=== PATIENT | female | born 1930 | race Caucasian/White ===

== ENCOUNTER → 2016-09-28 | Outpatient (CLI) | payer OTHER ==
[2016-09-28 09:56] LABS: Urine RBC None Seen /hpf (0 - 4)
[2016-09-28 10:07] LABS: Urine Bilirubin Negative (Negative); Urine Blood Negative /uL (Negative); Urine Color Yellow (Yellow); Urine Glucose Normal (Normal); Urine Ketone Negative (Negative); Urine Nitrite Negative (Negative); Urine Squamous Epithelial Cell FEW /hpf (<5); Urine Urobilinogen Normal (Negative)
[2016-09-28 10:21] LABS: Basophils # (auto) 0 uL; Basophils % (auto) 0.8 % (0.0-2.0); Eosinophils # (auto) 0.2 uL; Eosinophils % (auto) 4.6 % (0.0-7.0); Hematocrit 41.3 % (36.0-46.0); Hemoglobin 13.5 g/dL (12.2-16.2); Lymphocytes # (auto) 1.3 uL; Lymphocytes % (auto) 27.7 % (10.0-50.0); Mean Corpuscular Hemoglobin 31.3 pg (28.0-32.0); Mean Corpuscular Hgb Conc. 32.8 g/dL (32.0-36.0); Mean Corpuscular Volume 95.4 fL (80.0-100.0); Mean Platelet Volume 8.7 fL (7.4-10.4); Monocytes # (auto) 0.5 uL; Monocytes % (auto) 11.1 % (0.0-12.0); Neutrophils # (auto) 2.5 uL; Neutrophils % (auto) 55.8 % (37.0-80.0); Platelet Count (auto) 219 10^3/uL (140-450); Red Cell Distribution Width 15.2 % (11.6-16.0); White Blood Cell 4.6 10^3/uL (4.4-10.8)
[2016-09-28 10:24] LABS: Albumin 3.3 g/dL (3.4-5.0); BUN/Creatinine Ratio 21.7; Potassium 4.1 mmol/L (3.5-5.1); Total Protein 6.8 g/dL (6.4-8.2)
== END | disposition home or self-care (01) ==
LOC: LAB 09:23
PROVIDERS: ATTEND Internal Medicine
DX: Z00.00 Encounter for general adult medical examination without abnormal findings (principal); E55.9 Vitamin D deficiency, unspecified
CPT/HCPCS: 36415; 80053; 80061; 81001; 82306; 85025

== ENCOUNTER → 2016-10-13 | Outpatient (CLI) | payer OTHER | END | disposition home or self-care (01) | LOC: XYW 09:08 | PROVIDERS: ATTEND Internal Medicine | DX: I37.1 Nonrheumatic pulmonary valve insufficiency (principal); I10 Essential (primary) hypertension | CPT/HCPCS: 93306 ==

== ENCOUNTER → 2017-01-03 | Outpatient (CLI) | payer OTHER ==
[2017-01-03 11:38] LABS: Urine RBC None Seen /hpf (0 - 4)
[2017-01-03 11:44] LABS: Basophils # (auto) 0 uL; Basophils % (auto) 0.9 % (0.0-2.0); CONDITION Y; Eosinophils # (auto) 0.2 uL; Eosinophils % (auto) 3.5 % (0.0-7.0); Hematocrit 41.4 % (36.0-46.0); Lymphocytes # (auto) 1.3 uL; Lymphocytes % (auto) 29.4 % (10.0-50.0); Mean Corpuscular Hemoglobin 32.6 pg (28.0-32.0); Mean Platelet Volume 8.5 fL (7.4-10.4); Monocytes # (auto) 0.5 uL; Monocytes % (auto) 11.4 % (0.0-12.0); Neutrophils # (auto) 2.5 uL; Neutrophils % (auto) 54.8 % (37.0-80.0); Platelet Count (auto) 250 10^3/uL (140-450); Red Cell Distribution Width 14.1 % (11.6-16.0); White Blood Cell 4.6 10^3/uL (4.4-10.8)
[2017-01-03 11:46] LABS: Urine Bilirubin Negative (Negative); Urine Blood Negative /uL (Negative); Urine Color Yellow (Yellow); Urine Glucose Normal (Normal); Urine Ketone Negative (Negative); Urine Nitrite Negative (Negative); Urine Squamous Epithelial Cell FEW /hpf (<5); Urine Urobilinogen Normal (Negative)
[2017-01-03 12:01] LABS: Albumin 3.5 g/dL (3.4-5.0); BUN/Creatinine Ratio 16.9; Bilirubin, Total 0.8 mg/dL (0.2-1.0); Calcium 9.4 mg/dL (8.5-10.1); Potassium 3.9 mmol/L (3.5-5.1); Total Protein 7.2 g/dL (6.4-8.2)
== END | disposition home or self-care (01) ==
LOC: LAB 11:20
PROVIDERS: ATTEND Internal Medicine
DX: I10 Essential (primary) hypertension (principal); E05.90 Thyrotoxicosis, unspecified without thyrotoxic crisis or storm
CPT/HCPCS: 36415; 80053; 81001; 84443; 85025

== ENCOUNTER → 2017-10-13 | Outpatient (CLI) | payer OTHER ==
[2017-10-13 09:30] LABS: Basophils # (auto) 0 uL; Basophils % (auto) 1.3 % (0.0-2.0); Eosinophils # (auto) 0.2 uL; Eosinophils % (auto) 5.2 % (0.0-7.0); Hematocrit 43.5 % (36.0-46.0); Hemoglobin 14.5 g/dL (12.2-16.2); Lymphocytes % (auto) 28.8 % (10.0-50.0); Mean Corpuscular Hemoglobin 32.4 pg (28.0-32.0); Mean Corpuscular Hgb Conc. 33.3 g/dL (32.0-36.0); Mean Corpuscular Volume 97.4 fL (80.0-100.0); Monocytes # (auto) 0.5 uL; Monocytes % (auto) 12.6 % (0.0-12.0); Neutrophils # (auto) 1.9 uL; Neutrophils % (auto) 52.1 % (37.0-80.0); Nucleated Red Blood Cells % 0.1 %; Platelet Count (auto) 183 10^3/uL (140-450); Red Blood Cells 4.47 10^6/uL (4.0-5.20); Red Cell Distribution Width 13.9 % (11.8-14.3); White Blood Cell 3.6 10^3/uL (4.4-10.8)
[2017-10-13 09:55] LABS: Urine Bacteria NONE SEEN /hpf (None Seen); Urine Blood Negative /uL (Negative); Urine Specific Gravity 1.015 (1.001-1.035); Urine WBC 4 /hpf (0 - 5)
[2017-10-13 10:49] LABS: Albumin 3.6 g/dL (3.4-5.0); BUN/Creatinine Ratio 14.4; Bilirubin, Total 1.4 mg/dL (0.2-1.0); Calcium 9.2 mg/dL (8.5-10.1); Potassium 3.6 mmol/L (3.5-5.1); Total Protein 7.2 g/dL (6.4-8.2)
[2017-10-13 10:52] LABS: Free T4 (Free Thyroxine) 1.31 ng/dL (0.89-1.76); T3 Total 0.91 ng/mL (0.60-1.81)
== END | disposition home or self-care (01) ==
LOC: LAB 09:04
PROVIDERS: ATTEND Physician Assistant
DX: I12.9 Hypertensive chronic kidney disease with stage 1 through stage 4 chronic kidney disease, or unspecified chronic kidney disease (principal); N18.2 Chronic kidney disease, stage 2 (mild); M19.90 Unspecified osteoarthritis, unspecified site; E89.0 Postprocedural hypothyroidism; R53.83 Other fatigue
CPT/HCPCS: 36415; 80053; 80061; 81001; 84439; 84443; 84480; 85025

== ENCOUNTER → 2017-11-30 | Outpatient (CLI) | payer OTHER ==
[2017-11-30 15:28] LABS: Urine Bacteria MOD /hpf (None Seen); Urine Blood 2+ /uL (Negative); Urine Mucus FEW (None Seen); Urine Specific Gravity 1.013 (1.001-1.035); Urine WBC 264 /hpf (0 - 5); Urine WBC Clumps PRESENT /hpf (None Seen)
== END | disposition home or self-care (01) ==
LOC: LAB 14:57
PROVIDERS: ATTEND Registered Nurse General Practice
DX: N39.0 Urinary tract infection, site not specified (principal); I12.9 Hypertensive chronic kidney disease with stage 1 through stage 4 chronic kidney disease, or unspecified chronic kidney disease; N18.2 Chronic kidney disease, stage 2 (mild); F32.9 Major depressive disorder, single episode, unspecified; E03.9 Hypothyroidism, unspecified
CPT/HCPCS: 81001; 87086; 87088; 87186

== ENCOUNTER → 2018-06-26 | Outpatient (CLI) | payer OTHER | END | disposition home or self-care (01) | LOC: LAB 12:51 | PROVIDERS: ATTEND Physician Assistant | DX: E55.9 Vitamin D deficiency, unspecified (principal); E53.8 Deficiency of other specified B group vitamins; E89.89 Other postprocedural endocrine and metabolic complications and disorders | CPT/HCPCS: 36415; 82306; 82607; 84443 ==

== ENCOUNTER → 2019-02-22 | Outpatient (CLI) | payer OTHER | END | disposition home or self-care (01) | LOC: Rad HDHVI 13:58 | PROVIDERS: ATTEND Internal Medicine Cardiovascular Disease | DX: I35.1 Nonrheumatic aortic (valve) insufficiency (principal); I10 Essential (primary) hypertension; R06.02 Shortness of breath; R07.89 Other chest pain | CPT/HCPCS: 93306 ==

== ENCOUNTER → 2019-03-13 | Outpatient (CLI) | payer OTHER ==
[~2019-03-13] VITALS: Ht 175.3 cm; Wt 81.6 kg
[~2019-03-13] MED LIST: ADENOSINE 69 MG in GIVE UN-DILUTED 0 ML IV ONE; ADENOSINE 90 MG/30 ML INJ IV ONE; B-COTAB59 PO; CALC-440 PO; CHOL200021 PO; CLON0.1T PO; LEVO100T8 PO; LISI-646 PO; METO25TA62 PO; MULTTAB61 PO
== END | disposition home or self-care (01) ==
LOC: Rad HDHVI 09:30
PROVIDERS: ATTEND Internal Medicine Cardiovascular Disease
DX: Z01.810 Encounter for preprocedural cardiovascular examination (principal); I10 Essential (primary) hypertension; I73.9 Peripheral vascular disease, unspecified; M79.673 Pain in unspecified foot; R06.02 Shortness of breath
CPT/HCPCS: 78452; 93005; 96374; 96375; A9500; J0153

== ENCOUNTER 2019-05-02 10:56 | Day surgery (SDC) | payer OTHER ==
[2019-04-30 12:57] LABS: Basophils # (auto) 0 uL; Basophils % (auto) 0.8 % (0.0-2.0); Eosinophils # (auto) 0.1 uL; Hematocrit 42.3 % (36.0-46.0); Hemoglobin 14.1 g/dL (12.2-16.2); Lymphocytes # (auto) 0.8 uL; Lymphocytes % (auto) 19.3 % (10.0-50.0); Mean Corpuscular Hemoglobin 32.6 pg (28.0-32.0); Mean Corpuscular Hgb Conc. 33.4 g/dL (32.0-36.0); Mean Corpuscular Volume 97.8 fL (80.0-100.0); Monocytes # (auto) 0.5 uL; Monocytes % (auto) 12.4 % (0.0-12.0); Neutrophils # (auto) 2.7 uL; Neutrophils % (auto) 65.5 % (37.0-80.0); Nucleated Red Blood Cells % 0.1 %; Platelet Count (auto) 197 10^3/uL (140-450); Red Blood Cells 4.32 10^6/uL (4.0-5.20); Red Cell Distribution Width 13.9 % (11.8-14.3); White Blood Cell 4.2 10^3/uL (4.4-10.8)
[2019-04-30 13:10] LABS: Urine Bacteria NONE SEEN /hpf (None Seen); Urine Blood Negative /uL (Negative); Urine Mucus FEW (None Seen); Urine Specific Gravity 1.022 (1.001-1.035); Urine WBC 23 /hpf (0 - 5)
[2019-04-30 13:14] LABS: INR 0.98 (0.9-1.15); Partial Thromboplastin Time 28.4 sec (23.64-32.05)
[2019-04-30 13:48] LABS: Albumin 3.4 g/dL (3.4-5.0); Calcium 9.2 mg/dL (8.5-10.1); Potassium 3.8 mmol/L (3.5-5.1)
[2019-04-30 13:53] LABS: BUN/Creatinine Ratio 16.7; Bilirubin, Total 0.8 mg/dL (0.2-1.0); Total Protein 6.9 g/dL (6.4-8.2)
[~2019-05-02] VITALS: Ht 175.3 cm; Wt 81.6 kg
[~2019-05-02 10:56] MED LIST changes: -ADENOSINE 69 MG in GIVE UN-DILUTED 0 ML IV ONE; -ADENOSINE 90 MG/30 ML INJ IV ONE
[2019-05-02] MEDS ORDERED: LEVOFLOXACIN 500MG 100 ML IV ONE (12:09)
[2019-05-02] MEDS ORDERED: BUPIVACAINE W/ EPINEPH 0.25% INJ 50ML MDV ONE (14:19)
[2019-05-02] MEDS ORDERED: MIDAZOLAM HCL 1MG/1ML-2 ML VIAL ONE (14:25)
[2019-05-02] MEDS ORDERED: fentaNYL CITRATE 100 MCG/2 ML VL ONE (14:29)
[2019-05-02] MEDS ORDERED: NALOXONE HCL 0.4 MG/ML VIAL IV PRN (14:30)
[2019-05-02] MEDS ORDERED: ONDANSETRON HCL 4 MG/2 ML VIAL IV PRN (14:30)
[2019-05-02] MEDS ORDERED: hydrALAZINE HCL 20 MG/ML VL IV PRN (14:30)
[2019-05-02] MEDS ORDERED: HYDROmorphone HCL 2 MG/ML VL IV PRN (14:30)
[2019-05-02] MEDS ORDERED: PROPOFOL 10 MG/ML 20 ML IV ONE (14:37)
[2019-05-02 15:33] VITALS: BP 162/81
== END 2019-05-02 15:38 | disposition home or self-care (01) ==
LOC: SUR 10:56
PROVIDERS: ATTEND Surgery
DX: I83.91 Asymptomatic varicose veins of right lower extremity (principal); M19.90 Unspecified osteoarthritis, unspecified site; G47.33 Obstructive sleep apnea (adult) (pediatric); I10 Essential (primary) hypertension; E07.9 Disorder of thyroid, unspecified; Z98.890 Other specified postprocedural states; Z88.0 Allergy status to penicillin
CPT/HCPCS: 36415; 37785; 80053; 81001; 85025; 85610; 85730; 88305; J1956; J2250; J2704; J3010; J7030

== ENCOUNTER → 2019-09-07 | Outpatient (CLI) | payer OTHER ==
[~2019-09-07] MED LIST changes: -METO25TA62 PO; +METO25TA93 PO
[2019-09-07 10:22] LABS: Basophils # (auto) 0 10 ^3/uL (0-0.2); Eosinophils # (auto) 0.1 10 ^3/uL (0-0.8); Eosinophils % (auto) 2.9 % (0.0-7.0); Hematocrit 41.3 % (36.0-46.0); Mean Corpuscular Hemoglobin 32.7 pg (28.0-32.0); Mean Corpuscular Volume 96.2 fL (80.0-100.0); Monocytes # (auto) 0.5 10 ^3/uL (0-1.3); Monocytes % (auto) 12.2 % (0.0-12.0); Neutrophils # (auto) 2.5 10 ^3/uL (1.6-8.6); Neutrophils % (auto) 60.9 % (37.0-80.0); Nucleated Red Blood Cells % 0.1 %; Platelet Count (auto) 193 10^3/uL (140-450); Red Cell Distribution Width 14.2 % (11.8-14.3); White Blood Cell 4.2 10^3/uL (4.4-10.8)
[2019-09-07 10:59] LABS: Albumin 3.3 g/dL (3.4-5.0); Potassium 3.9 mmol/L (3.5-5.1)
[2019-09-07 11:05] LABS: BUN/Creatinine Ratio 20.7; Bilirubin, Total 1.1 mg/dL (0.2-1.0); Total Protein 7.1 g/dL (6.4-8.2)
== END | disposition home or self-care (01) ==
LOC: LAB 09:51
PROVIDERS: ATTEND Physician Assistant
DX: Z00.00 Encounter for general adult medical examination without abnormal findings (principal); E53.8 Deficiency of other specified B group vitamins; E55.9 Vitamin D deficiency, unspecified; I12.9 Hypertensive chronic kidney disease with stage 1 through stage 4 chronic kidney disease, or unspecified chronic kidney disease; N18.2 Chronic kidney disease, stage 2 (mild)
CPT/HCPCS: 36415; 80053; 80061; 82306; 82607; 85025

== ENCOUNTER → 2019-12-05 | Outpatient (CLI) | payer OTHER | END | disposition home or self-care (01) | LOC: XYW 09:42 | PROVIDERS: ATTEND Internal Medicine | DX: I08.2 Rheumatic disorders of both aortic and tricuspid valves (principal) | CPT/HCPCS: 93306 ==

== ENCOUNTER → 2019-12-07 | Outpatient (CLI) | payer OTHER ==
[~2019-12-07] MED LIST changes: +MULT-1018 PO; -MULTTAB61 PO
[2019-12-07 11:00] LABS: Free T4 (Free Thyroxine) 1.11 ng/dL (0.89-1.76)
[2019-12-07 11:01] LABS: T3 Total 0.88 ng/mL (0.60-1.81)
== END | disposition home or self-care (01) ==
LOC: LAB 09:42
PROVIDERS: ATTEND Physician Assistant
DX: I10 Essential (primary) hypertension (principal); R01.1 Cardiac murmur, unspecified; M81.0 Age-related osteoporosis without current pathological fracture
CPT/HCPCS: 36415; 84439; 84443; 84480

== ENCOUNTER 2020-04-03 11:42 | Inpatient (IN) | payer OTHER ==
[~2020-04-03] VITALS: Ht 175.3 cm; Wt 83.0 kg
[2020-04-03] MEDS ORDERED: ONDANSETRON HCL 4 MG/2 ML VIAL IV ONE (12:30)
[2020-04-03] MEDS ORDERED: MORPHINE SULF INJ 2 MG/ML SYRINGE 1ML IV ONE (12:30)
[2020-04-03 12:45] LABS: Basophils # (auto) 0 10 ^3/uL (0-0.2); Basophils % (auto) 0.2 % (0.0-2.0); Eosinophils # (auto) 0.9 10 ^3/uL (0-0.8); Eosinophils % (auto) 11.8 % (0.0-7.0); Hematocrit 41.8 % (36.0-46.0); Lymphocytes # (auto) 0.9 10 ^3/uL (0.4-5.4); Lymphocytes % (auto) 11.9 % (10.0-50.0); Mean Corpuscular Hemoglobin 32.8 pg (28.0-32.0); Mean Corpuscular Hgb Conc. 33.6 g/dL (32.0-36.0); Mean Corpuscular Volume 97.5 fL (80.0-100.0); Monocytes # (auto) 0.5 10 ^3/uL (0-1.3); Neutrophils % (auto) 69.1 % (37.0-80.0); Platelet Count (auto) 175 10^3/uL (140-450); Red Blood Cells 4.28 10^6/uL (4.0-5.20); Red Cell Distribution Width 13.8 % (11.8-14.3); White Blood Cell 7.3 10^3/uL (4.4-10.8)
[2020-04-03 12:57] LABS: Albumin 3.3 g/dL (3.4-5.0); Calcium 9.2 mg/dL (8.5-10.1); Potassium 3.5 mmol/L (3.5-5.1)
[2020-04-03 13:00] LABS: BUN/Creatinine Ratio 21.5; Total Protein 6.6 g/dL (6.4-8.2)
[2020-04-03] MEDS ORDERED: ENALAPRILAT 1.25 MG/ML-1ML VIAL IV ONE (14:15)
[2020-04-03] MEDS ORDERED: NITROGLYCERIN 0.4 MG SL TAB SL PRN (14:15)
[2020-04-03] MEDS ORDERED: MORPHINE SULF INJ 2 MG/ML SYRINGE 1ML IV PRN ×2 (14:15→15:30)
[2020-04-03] MEDS ORDERED: cloNIDine HCL 0.1 MG TAB PO PRN (15:30)
[2020-04-03] MEDS ORDERED: ACETAMINOPHEN 500 MG TAB PO PRN (15:30)
[2020-04-03] MEDS ORDERED: ONDANSETRON HCL 4 MG/2 ML VIAL IV PRN (15:30)
[2020-04-03] MEDS ORDERED: LORazepam 0.5 MG TAB PO PRN (15:30)
[2020-04-03] MEDS ORDERED: LISINOPRIL 10 MG TAB PO ONE (15:30)
[2020-04-03] MEDS ORDERED: HYDR25TA4 PO (15:36)
[2020-04-03] MEDS ORDERED: ALEN1TAB32 PO (15:36)
--- NOTE | 2020-04-03 17:33 | NUR ---
Telemetry admit from ER ABDIKEVIN [place] admitted to Telemetry unit after SBAR received. Patient oriented to Sunday poole RN, unit, room, bed, and unit policies regarding patient care and visiting hours. Patient now on continuous telemetry monitoring, tele box # 57 and telemetry reading on arrival to unit is SR 65. Patient placed on bedside oxygen, weighed by bedscale and encouraged to call if they need something. All questions and concerns addressed, patient verbalized understanding. Note:Patient admitted with diagnosis of pelvic fracture. Patient aaox4, pleasant and cooperative and voiced no c/o pain/ discomfort at this time and was in no distress. Admission assessment done and charted. Patiebt orientated to staff, unit and routine and patient verbalized understanding. Will continue to monitor patient.
[2020-04-03] MEDS ORDERED: ENALAPRILAT 1.25 MG/ML-1ML VIAL IV PRN (18:00)
--- NOTE | 2020-04-03 19:00 | NUR ---
Opening Shift Note Assumed care of patient, awake and alert. No S/S of distress/SOB or pain. Instructed on POC and to call for assist PRN, will continue to monitor for changes Q1hr and PRN.
[2020-04-03 20:00] VITALS: BP 117/20
[2020-04-03 21:40] VITALS: BP 117/70
[2020-04-03] MEDS: LISINOPRIL 20 MG TAB PO SCH (21:51)
[2020-04-03] MEDS: FAMOTIDINE 20 MG TAB PO SCH (21:53)
[2020-04-04 04:56] VITALS: BP 148/76
[2020-04-04] MEDS: LEVOTHYROXINE SODIUM 100 MCG TAB PO SCH (06:49)
[2020-04-04 09:00] VITALS: BP 148/85
[2020-04-04] MEDS: CHOLECALCIFEROL (VITD3) 2,000 UNIT CAP PO SCH (10:00)
[2020-04-04] MEDS: METOPROLOL SUCCINATE XL 50 MG TAB PO SCH (10:00)
[2020-04-04] MEDS: CALCIUM W/VIT D (600MG/400IU) TAB PO SCH (11:09)
[2020-04-04] MEDS: FAMOTIDINE 20 MG TAB PO SCH ×2 (11:09→22:12)
[2020-04-04] MEDS: MULTIPLE VITAMIN TAB PO SCH (11:16)
[2020-04-04] MEDS: LISINOPRIL 20 MG TAB PO SCH ×2 (11:17→22:13)
[2020-04-04 13:00] VITALS: BP 145/73
[2020-04-04 17:00] VITALS: BP 153/70
[2020-04-04] MEDS: traMADol HCL 50 MG TAB PO PRN (20:20)
[2020-04-04 22:00] VITALS: BP 134/80
[2020-04-05 05:00] VITALS: BP 137/82
[2020-04-05] MEDS: LEVOTHYROXINE SODIUM 100 MCG TAB PO SCH (06:29)
[2020-04-05 09:00] VITALS: BP 147/78
[2020-04-05] MEDS: CALCIUM W/VIT D (600MG/400IU) TAB PO SCH (09:48)
[2020-04-05] MEDS: METOPROLOL SUCCINATE XL 50 MG TAB PO SCH (09:49)
[2020-04-05] MEDS: MULTIPLE VITAMIN TAB PO SCH (09:49)
[2020-04-05] MEDS: FAMOTIDINE 20 MG TAB PO SCH ×2 (09:49→21:49)
[2020-04-05] MEDS: traMADol HCL 50 MG TAB PO PRN (09:50)
[2020-04-05] MEDS: LISINOPRIL 20 MG TAB PO SCH ×2 (09:51→21:49)
--- NOTE | 2020-04-05 09:55 | NUR ---
MD AT BEDSIDE DR. URIBE WAS IN TO SEE. PATIENT. MD DISCUSSED WITH PATIENT ABOUT PLAN OF DISCHARGE TO SNF OR HOME AND PATIENT REFUSED TO GO TO SNF BECAUSE OF PREVIOUS EXPERIENCES POST SURGERIES. PATIENT LIVES WITH HER AT HOME.
--- NOTE | 2020-04-05 11:30 | NUR ---
PT REFUSED P.T. TODAY.
[2020-04-05 13:00] VITALS: BP 168/86
[2020-04-05] MEDS: CHOLECALCIFEROL (VITD3) 2,000 UNIT CAP PO SCH (15:22)
[2020-04-05 16:34] VITALS: BP 161/71
[2020-04-05 20:00] VITALS: BP 143/79
--- NOTE | 2020-04-05 20:30 | NUR ---
PT SPILT WATER ON HER GOWN;LINEN AND GOWN CHANGED PT REPOSITIONED. TOLERATED WELL.
[2020-04-05 21:36] VITALS: BP 111/72
--- NOTE | 2020-04-05 22:00 | NUR ---
ATTEMPT MADE AT TURNING PATIENT. PT REFUSING TO BE TURNED.
--- NOTE | 2020-04-06 01:00 | NUR ---
PT TURNED WITH CHUX CHANGED;PT TOLERATED WELL.
--- NOTE | 2020-04-06 04:00 | NUR ---
PT TURNED BECAUSE HER CHUX UNDERNEATH WAS BUNDLED UP AND NEEDED TO BE STRAIGHTENED. APPEARS TO BE MORE COMPLIANT IN ASSISTING STAFF WITH HER TURNING. CALL LIGHT IN REACH WITH VITAL SIGNS STABLE. WILL CONTINUE TO MONITOR.
[2020-04-06] MEDS: LEVOTHYROXINE SODIUM 100 MCG TAB PO SCH (04:58)
[2020-04-06 05:33] VITALS: BP 122/78
--- NOTE | 2020-04-06 07:30 | NUR ---
Opening Shift Note RECEIVED REPORT FROM NOC RN. Assumed care of patient, awake and alert. PATIENT ON OXYGEN AT 2 LPM VIA NASAL CANNULA WITH no S/S of distress/SOB or pain. BED IN LOWEST, LOCKED POSITION WITH SIDERAILS UP x2 AND CALL LIGHT WITHIN REACH. Instructed on POC and to call for assist PRN, will continue to monitor for changes Q1hr and PRN.
[2020-04-06 09:00] VITALS: BP 123/70
[2020-04-06] MEDS: traMADol HCL 50 MG TAB PO PRN (09:13)
[2020-04-06] MEDS: CHOLECALCIFEROL (VITD3) 2,000 UNIT CAP PO SCH (09:59)
[2020-04-06] MEDS: METOPROLOL SUCCINATE XL 50 MG TAB PO SCH (09:59)
[2020-04-06] MEDS: FAMOTIDINE 20 MG TAB PO SCH ×2 (09:59→21:43)
[2020-04-06] MEDS: LISINOPRIL 20 MG TAB PO SCH ×2 (09:59→21:43)
[2020-04-06] MEDS: MULTIPLE VITAMIN TAB PO SCH (10:00)
[2020-04-06] MEDS: CALCIUM W/VIT D (600MG/400IU) TAB PO SCH (10:00)
--- NOTE | 2020-04-06 11:44 | NUR ---
Nutrition Assessment Est energy needs [id number] kcal (18-20 kcal/kg BW 86.4kg) est protein needs 66-79g (1-1.2g/kg IBW 66kg) Will reassess prn. Addendum: 04/06/20 at [address] Amended: Links added.
[2020-04-06 13:00] VITALS: BP 141/69
[2020-04-06 17:00] VITALS: BP 111/67
--- NOTE | 2020-04-06 19:45 | NUR ---
OPENING SHIFT NOTE Assumed care of patient who is A&O x4. Currently on 2L NC with no s/s of distress. Denies pain at this time. PIV in left AC is intact and patent. Flushed with 10ml NS. Peraza catheter present and intact. tubing is free from kinks and collection bag is hung below the level of the bladder. Draining cloudy light yamila urine. 1+ pitting edema noted in LLE. Patient refusing to turn at this time. Instructed on the importance of shift weight frequently to avoid skin break down. Patient verbalizes understanding, but states "I can't right now". Will continue to encourage frequent turning. Bed is in low locked position with side rails up x2. Call light is within reach and patient encouraged to call for assistance when needed. Will continue to monitor for changes PRN.
[2020-04-06 22:00] VITALS: BP 134/74
--- NOTE | 2020-04-06 22:45 | NUR ---
Patient states that she thinks her catheter is leaking. Peraza assessed. No leakage noted. Catheter care provided. Patient is refusing to turn at this time. Patient educated on the importance of turning to maintain skin integrity. Patient states, "It hurts when I move. I'm back to not being able to move." Pain medication offered, however patient declines at this time.
--- NOTE | 2020-04-07 01:46 | NUR ---
ROUNDS Patient continues to refuse turning. Call light is within reach and patient encouraged to call for assistance when needed.
[2020-04-07 05:18] VITALS: BP 134/88
[2020-04-07] MEDS: LEVOTHYROXINE SODIUM 100 MCG TAB PO SCH (06:29)
--- NOTE | 2020-04-07 08:00 | NUR ---
Received pt resting in bed, call light within reach, pt denies any pain or discomfort at this time, will continue to monitor pt.
[2020-04-07 08:26] VITALS: BP 140/80
[2020-04-07] MEDS: MULTIPLE VITAMIN TAB PO SCH (10:02)
[2020-04-07] MEDS: METOPROLOL SUCCINATE XL 50 MG TAB PO SCH (10:03)
[2020-04-07] MEDS: CHOLECALCIFEROL (VITD3) 2,000 UNIT CAP PO SCH (10:03)
[2020-04-07] MEDS: FAMOTIDINE 20 MG TAB PO SCH ×2 (10:03→21:58)
[2020-04-07] MEDS: CALCIUM W/VIT D (600MG/400IU) TAB PO SCH (10:03)
[2020-04-07] MEDS: LISINOPRIL 20 MG TAB PO SCH ×2 (10:04→21:58)
--- NOTE | 2020-04-07 11:20 | NUR ---
WOUND CARE NOTE: WOUND CARE IN TO SEE PATIENT PER WOUND CARE REQUEST. PATIENT ADMITTED TO [facility] FOR PELVIC FRACTURE. BEDSIDE NURSE NOTED SKIN INTEGRITY ISSUES. PHOTOGRAPH TAKEN AT THAT TIME FOR REFERENCE. PATIENT BENITO SCORE IS 17. PATIENT NOTED TO HAVE PRESSURE INJURY TO MEDIAL BACK AND BLANCHABLE REDNESS TO LEFT BUTTOCK. CLEANSED BACK WITH NORMAL SALINE, PATTED DRY, THERAHONEY APPLIED AND COVERED WITH OPTIFOAM GENTLE DRESSING. ZGUARD APPLIED TO LEFT BUTTOCK AND COVERED WITH OPTIFOAM GENTLE SACRAL DRESSING. RECOMMEND: REDISTRIBUTE PRESSURE UTILIZING PILLOWS AND WEDGES. DAILY/PRN DRESSING CHANGES. SKIN/WOUND CARE PLAN. CONTINUED MONITORING BY WOUND CARE TEAM. Addendum: 04/07/20 at 1424 by SHIREEN HARTMAN RN RN Amended: Links added.
--- NOTE | 2020-04-07 11:25 | NUR ---
Dr. Mccrary at bed side to see pt, doctor discussed the plan of care with pt.
--- NOTE | 2020-04-07 11:50 | NUR ---
Pt is an alert and oriented female that is pleasant and able to make needs known. Pt states she resides with her spouse, who does the preparing of meals, and that she functioned independently prior to hospitalization. Pt was driving self, running errands, cleaning her home, etc. prior to fall. She was leaving the [employer] and didn't step far enough onto a high curb and fell. Discussed options of home with home health vs. SNF. Pt states she got up with PT this am and although it was painful, she wants to go to rehab. Pt states she has been to [place] before for her knee surgery and does not like going down the hill. Pt requests to go to [facility] or [facility]. Explained if authorized for rehab she would have to go to contracted facility that had an available bed. Informed [facility] contracted vendors are [facility], and that we have a NICKI with [facility]. Will follow up with PT regarding recommendations and provider order and provide appropriate intervention at that time. Addendum: 04/07/20 at 1206 by RUTHIE GU Amended: Links added.
[2020-04-07 12:34] VITALS: BP 130/80
[2020-04-07 16:34] VITALS: BP 130/78
--- NOTE | 2020-04-07 19:40 | NUR ---
OPENING SHIFT NOTE Assumed care of patient who is A&O x4. Currently on RA with no s/s of distress. denies pain at this time. States that she only feels pain with moving/repositioning. PIV in left AC is intact and patent. Flushed with 10ml NS. Peraza catheter in place and patent. Tubing is free from kinks and collection bag hung below the level of the bladder, draining clear yellow urine to gravity. POC discussed, including the importance of turning Q2 hours due to skin integrity issues. Patient verbalizes understanding. Bed is in low locked position with side rails up x2. Call light is within reach and patient encouraged to call for assistance when needed. Will continue to monitor for changes PRN.
[2020-04-07 22:11] VITALS: BP 142/72
[2020-04-08] MEDS: traMADol HCL 50 MG TAB PO PRN ×2 (05:46→20:47)
[2020-04-08] MEDS: LEVOTHYROXINE SODIUM 100 MCG TAB PO SCH (05:47)
[2020-04-08 05:57] VITALS: BP 140/84
--- NOTE | 2020-04-08 07:50 | NUR ---
RECEIVED PATIENT ALERT AND ORIENTED X4, NOT IN DISTRESS, CLEAR LS IN BILATERAL LUNG LOBES, RR=18 SAT=96% WITH O2 2L NC, DEEP BREATHING AND COUGHING WAS ENCOURAGED, DEMONSTRATED UNDERSTANDING, SR R=68 ON TELE MONITOR, DENIED SOB AND CHEST PAIN, ABDOMEN SOFT WITH ACTIVE BS, LAST BM=04/02/20 AND DENIED CONSTIPATION REPORTED, PATTERSON CATH IN PLACE AND PATENT, DRAING CLEAR YELLOW URINE, SACRUM COVERED WITH DRY AND INTACT OPTIFOAM, RADIAL AND PEDAL PULSES PALPABLE, CAP REFILL <3 SECONDS, KEEP SKIN DRY AND INTACT, POSITION CHANGE Q2 HOURS, EDUCATION PROVIDED, VERBALIZED UNDERSTANDING, RESTING ON BED, HEAD OF BED ELEVATED, BED ON LOW POSITION, RAILS UP X2, CALL LIGHT ON REACH, WILL CONTINUE MONITORING.
[2020-04-08 09:00] VITALS: BP 150/84
[2020-04-08] MEDS: CHOLECALCIFEROL (VITD3) 2,000 UNIT CAP PO SCH (10:00)
[2020-04-08] MEDS: MULTIPLE VITAMIN TAB PO SCH (11:30)
[2020-04-08] MEDS: FAMOTIDINE 20 MG TAB PO SCH ×2 (11:30→20:48)
[2020-04-08] MEDS: CALCIUM W/VIT D (600MG/400IU) TAB PO SCH (11:30)
[2020-04-08] MEDS: METOPROLOL SUCCINATE XL 50 MG TAB PO SCH (11:31)
[2020-04-08] MEDS: LISINOPRIL 20 MG TAB PO SCH ×2 (11:33→21:43)
--- NOTE | 2020-04-08 12:25 | NUR ---
OUT OF BED TO THE CHAIR, SAT 1 HOUR ON THE CHAIR AND BACK TO BED AT THIS MOMENT, TOLERATED WELL, KEEP SKIN CLEAN AND DRY, POSITION CHANGE Q 2 HOURS, COOPERATING WELL, RESTING ON BED, WILL CONTINUE MONITORING.
[2020-04-08 12:50] VITALS: BP 129/79
--- NOTE | 2020-04-08 14:34 | NUR ---
Per PT notes pt was not able to transfer to chair due to level of pain and per Ortho pelvic fx is nonoperable and will need to heal. Pt is not a candidate for inpatient level rehab due to nonoperable fracture, inability to participate in therapy as a result of pain, and unable to participate in 2-3 hours of physical therapy daily because of nonoperable fracture. Discussed discharge planning options with daughter, Grayson, that included: home with home health, home with a caregiver and home health, or assisted living facility and home health since pt is not a candidate for rehab. Pt is approved for home health for PT for transfer training, MEAT MARKET MANAGER, and SN and a w/c and bsc. Grayson inquiring if pt can come to her home in [place] so that she can assist her mother at night. Informed Grayson I will need to look into a NICKI with a home health agency in that area. Will follow up with pt and provider for completion and implementation of discharge plan.
--- NOTE | 2020-04-08 15:57 | NUR ---
Discussed with pt discharge plan for home on tomorrow per provider due to pt not being appropriate for inpatient rehab. Pt verbalized agreeance with discharge plan to home with home health. Pt states she declines to go to her daughters home for right now and will see about going in a few weeks. States her daughter works from home and she does not want to be bother her. Pt requesting information on private pay caregivers and transportation home. Pt states she only has a credit card. Contacted [employer] [facility] due to pt having no black and only company that accepts card. Provided approximate rate of $145.60 for wheelchair transport to pt's home address: [address] [place] [address]. Also to provide private pay caregiver information through [employer] and [employer] agency for pt. Contacted [employer]( [phone])and faxed auth as well as clinical information for W/C and BSC delivery to the home. Contacted [facility] ( [phone]) and faxed auth as well as clinical information for home health for Aide, SN and PT for transfers. Pt accepted onto service and will be followed up on in 24-48 hours post discharge.
--- NOTE | 2020-04-08 16:00 | NUR ---
SS WAS CONTACTED FOR D/C PROCESS PROGRESS FOLLOW UP, PROCESS IS PENDING REPORTED, PARTIAL BATH AND CLEANING WAS PROVIDED, COOPERATED AND TOLERATED WELL, RESTING ON BED, NOT IN DISTRESS, WILL CONTINUE MONITORING.
[2020-04-08 16:53] VITALS: BP 152/80
--- NOTE | 2020-04-08 19:19 | NUR ---
RESTING ON BED, NOT IN DISTRESS, HEAD OF BED ELEVATED, BED ON LOW POSITION, RAILS UP X2, CALL LIGHTS ON REACH, REPORT WAS GIVEN TO THE INSTRUMENT PERSON RN.
--- NOTE | 2020-04-08 19:35 | NUR ---
Opening Shift Note Assumed care of patient, awake and alert x 4. No S/S of distress/SOB or pain. Tele box matches pt all leads are in place. Bed lowered and locked side rails up x 2. Call light and bedside table within reach. Instructed on POC and to call for assist PRN, will continue to monitor for changes Q1hr and PRN.
[2020-04-08 21:30] VITALS: BP 143/82
[2020-04-09] MEDS: traMADol HCL 50 MG TAB PO PRN ×4 (01:17→16:49)
[2020-04-09 04:30] VITALS: BP 150/74
[2020-04-09] MEDS: LEVOTHYROXINE SODIUM 100 MCG TAB PO SCH (06:08)
--- NOTE | 2020-04-09 07:34 | NUR ---
RECEIVED PATIENT ALERT AND ORIENTED X4, NOT IN DISTRESS, CRACKLE LS IN BILATERAL LUNG LOBES, RR=18, DEEP BREATHING AND COUGHING ENCOURAGED, DEMONSTRATED AND VERBALIZED UNDERSTANDING, DENIED CHEST PAIN AND SOB, SR R=68 ON TELE MONITOR, ABDOMEN SOFT AND ROUND WITH ACTIVE BS, LAST BM=04/08/20 REPORTED, PATTERSON CATH IN PLACE AND PATENT, DRAINING YELLOW URINE WITH SEDIMENTATIONS, KEEP HIP IMMOBILIZED, MID BACK PRESSURE ULCER AND RT. BUTTOCK COVERED WITH DRY AND INTACT OPTIFOAM, BILATERAL LOWER EXTREMITIES NON PITTING EDEMA NOTED, RADIAL AND PEDAL PULSES PALPABLE, CAP REFILL <3 SECONDS, SKIN KEEP CLEAN AND DRY, RESTING ON BED, HEAD OF BED ELEVATED, BED ON LOW POSITION, RAILS UP X2, CALL LIGHTS ON REACH, WILL CONTINUE MONITORING.
[2020-04-09 09:12] VITALS: BP 145/93
--- NOTE | 2020-04-09 09:30 | NUR ---
DAUGHTER CALLED AND REQUESTED TO COMMUNICATE WITH THE SS, SS CHLOROBUTADIENE SCRUBBER OPERATOR WAS CONTACTED TO BE NOTIFIED TO FOLLOW UP WITH THE DAUGHTER REQUESTED, SS CHLOROBUTADIENE SCRUBBER OPERATOR VERBALIZE UNDERSTANDING AND STATED " I WILL CONTACT THE DAUGHTER", WILL CONTINUE MONITORING.
--- NOTE | 2020-04-09 10:38 | NUR ---
Pharmacy was contacted for missing dose of vitamin D3, waiting for D3 from Pharmacy as reported.
[2020-04-09] MEDS: MULTIPLE VITAMIN TAB PO SCH (10:45)
[2020-04-09] MEDS: CALCIUM W/VIT D (600MG/400IU) TAB PO SCH (10:45)
[2020-04-09] MEDS: FAMOTIDINE 20 MG TAB PO SCH ×2 (10:45→21:21)
[2020-04-09] MEDS: METOPROLOL SUCCINATE XL 50 MG TAB PO SCH (10:46)
[2020-04-09] MEDS: LISINOPRIL 20 MG TAB PO SCH ×2 (10:47→21:22)
[2020-04-09] MEDS: CHOLECALCIFEROL (VITD3) 2,000 UNIT CAP PO SCH (10:52)
--- NOTE | 2020-04-09 11:35 | NUR ---
SS D/C PROCESS ARRANGEMENT WAS DONE PENDING D/C HOME WITH [facility] CATH AND HOME HEALTH CARE, SARAH PATTON WAS CONTACTED ON [phone] AND NOTIFIED OF PENDING D/C, WILL CONTINUE MONITORING.
[2020-04-09 12:36] VITALS: BP 132/84
[2020-04-09 13:07] VITALS: BP 153/82
--- NOTE | 2020-04-09 15:00 | NUR ---
REFUSED PT, WOUND CARE AND DRESSING CHANGE WAS PROVIDED, D/C FOLLOW UP PICTURE WAS TAKEN, BED BATH AND SKIN CLEANING PROVIDED, TOLERATED WELL, WAITING FOR TRANSPORTATION, NOT IN DISTRESS, RESTING ON BED, WILL CONTINUE MONITORING.
--- NOTE | 2020-04-09 16:00 | NUR ---
ENTERPRISE SERVICES MANAGER TIME IN 2 HOURS REPORTED BY SS, [facility] [employer] CONTACTED FOR ENTERPRISE SERVICES MANAGER TIME FOLLOW UP, NO TRANSPORTATION ARRANGEMENT SET NOTED REPORTED BY [employer] PERSONAL, SS CALLED AND LEFT A MESSAGE, WAITING FOR CALL BACK.
--- NOTE | 2020-04-09 17:00 | NUR ---
[facility] [employer] CONNECTED PHONE COMMUNICATION TO THE PATIENT'S ROOM, PATIENT IS CONFUSED AND UNABLE TO COMMUNICATE FOR TRANSPORTATION ARRANGEMENT, SARAH PATTON CONTACTED ON [phone], WILL ARRANGE AND PAY FOR THE TRANSPORTATION, [employer] [facility] INFORMATION PROVIDE TO COMMUNICATE WITH DARLYN [phone], WILL CONTINUE MONITORING.
--- NOTE | 2020-04-09 17:45 | NUR ---
DAUGHTER AND CONTACTED [facility] FOR TRANSPORTATION ARRANGEMENT, NEXT TRANSPORTATION TIME AVAILABILITY IS 11:15 REPORTED BY DAUGHTER AND [facility] SRIVAST[facility], DAUGHTER REFUSED LATE DISCHARGE AND ARRANGED FOR 04/10/20 AT 09:30 AM, LENS ENGRAVER AND HOSPITALIST NATHAN ARE AWARE.
--- NOTE | 2020-04-09 19:10 | NUR ---
Opening Shift Note Assumed care of patient, awake and alert. Patient on 2L N/C oxygen saturation 92%. No S/S of distress/SOB or pain. Bed locked in lowest position, side rails up X2, call light within reach. Instructed on POC and to call for assist PRN, will continue to monitor for changes Q1hr and PRN.
--- NOTE | 2020-04-09 19:11 | NUR ---
PENDING D/C, RESTING ON BED, NOT IN DISTRESS, HEAD OF BED ELEVATED, BED ON LOW POSITION, RAILS UP X2, CALL LIGHTS ON REACH, REPORT WAS GIVEN TO THE CAPACITOR TESTER RN.
--- NOTE | 2020-04-09 20:01 | NUR ---
Patient spilled pudding and dropped spoon on gown. Cleaned hands with wash cloth, changed gown and repositioned to the right side. No signs of distress or SOB.
[2020-04-09 21:50] VITALS: BP 125/70
--- NOTE | 2020-04-10 01:50 | NUR ---
PATIENT STATES HER FEET ARE IN PAIN AND SHE CANNOT MOVE THEM. I REMOVED THE PILLOW THAT WAS PLACED ON TOP OF HER FEET, REMOVED THE TWO EXTRA BLANKETS THAT WERE UNDER HER FEET. PATIENTS PAIN IS RELIEVED.
[2020-04-10 05:08] VITALS: BP 123/62
[2020-04-10] MEDS: LEVOTHYROXINE SODIUM 100 MCG TAB PO SCH (05:58)
--- NOTE | 2020-04-10 07:04 | NUR ---
CARE ENDORSED TO DAY SHIFT RN. PATIENT RESTING IN BED, NO SIGNS OF DISTRESS OR SOB. SIDE RAILS UP X2, BED LOCKED IN LOWEST POSITION, CALL LIGHT WITHIN REACH.
[2020-04-10] MEDS: FAMOTIDINE 20 MG TAB PO SCH (08:19)
[2020-04-10] MEDS: CHOLECALCIFEROL (VITD3) 2,000 UNIT CAP PO SCH (08:20)
[2020-04-10] MEDS: MULTIPLE VITAMIN TAB PO SCH (08:20)
[2020-04-10] MEDS: CALCIUM W/VIT D (600MG/400IU) TAB PO SCH (08:20)
[2020-04-10] MEDS: LISINOPRIL 20 MG TAB PO SCH (08:22)
[2020-04-10] MEDS: METOPROLOL SUCCINATE XL 50 MG TAB PO SCH (08:23)
[2020-04-10 09:00] VITALS: BP 118/63
--- NOTE | 2020-04-10 10:23 | NUR ---
Discharge instructions given as ordered. Encourage to follow up with PMD as instructed. All questions and concerns addressed. Patient verbalized understanding. Medication reconciliation form completed and copy given to patient. Home medications held in Pharmacy returned to patient, and needed vaccines given. IV removed with catheter intact, pressure dressing applied, last catheter CHANGED TO LEG BAG. Telemetry unit returned to ICU. Patient taken to vehicle via [employer] wheelchair with all personal belongings. No distress noted at time of departure.
--- NOTE | 2020-04-10 10:23 | NUR ---
Opening Shift Note Assumed care of patient, awake and alert. No S/S of distress/SOB or pain. Bed locked in lowest position, side rails up X2, call light within reach. Instructed on POC and to call for assist PRN, will continue to monitor for changes Q1hr and PRN. Addendum: 04/10/20 at 1024 by KEVIN SIU RN RN CORRECT TIME 0749
== END 2020-04-10 10:24 | disposition home health service (06) | DRG 536 ==
LOC: ER 11:42 → EDBD 11:42 → TELE 11:43 → TELE-WESTW 17:41
PROVIDERS: ADMIT Internal Medicine; ATTEND Family Medicine
DX: S32.512A Fracture of superior rim of left pubis, initial encounter for closed fracture (principal); M19.90 Unspecified osteoarthritis, unspecified site; Y93.01 Activity, walking, marching and hiking; M81.0 Age-related osteoporosis without current pathological fracture; E03.9 Hypothyroidism, unspecified; W10.1XXA Fall (on)(from) sidewalk curb, initial encounter; Z88.0 Allergy status to penicillin; I10 Essential (primary) hypertension; Y92.89 Other specified places as the place of occurrence of the external cause; Y99.8 Other external cause status
CPT/HCPCS: 36415; 71045; 73700; 80053; 83880; 85025; 93005; 96374; 96375; 97110; 97530; G0378; J2405

== ENCOUNTER → 2020-10-03 | Outpatient (CLI) | payer OTHER, MEDICARE ==
[~2020-10-03] MED LIST changes: +ALEN70TA74 PO; +HYDR25TA4 PO
[2020-10-03 11:54] LABS: Basophils # (auto) 0.1 10 ^3/uL (0-0.2); Basophils % (auto) 1.4 % (0.0-2.0); Eosinophils # (auto) 0.1 10 ^3/uL (0-0.8); Eosinophils % (auto) 2.4 % (0.0-7.0); Hemoglobin 14.9 g/dL (12.2-16.2); Lymphocytes % (auto) 25.8 % (10.0-50.0); Mean Corpuscular Hemoglobin 33.7 pg (28.0-32.0); Mean Corpuscular Hgb Conc. 34.6 g/dL (32.0-36.0); Mean Corpuscular Volume 97.3 fL (80.0-100.0); Monocytes # (auto) 0.4 10 ^3/uL (0-1.3); Monocytes % (auto) 12.1 % (0.0-12.0); Neutrophils # (auto) 2.2 10 ^3/uL (1.6-8.6); Neutrophils % (auto) 58.3 % (37.0-80.0); Nucleated Red Blood Cells % 0.1 %; Platelet Count (auto) 180 10^3/uL (140-450); Red Blood Cells 4.42 10^6/uL (4.0-5.20); Red Cell Distribution Width 14.1 % (11.8-14.3); White Blood Cell 3.7 10^3/uL (4.4-10.8)
[2020-10-03 12:19] LABS: Potassium 3.9 mmol/L (3.5-5.1)
[2020-10-03 12:27] LABS: Albumin 3.4 g/dL (3.4-5.0); BUN/Creatinine Ratio 19.4; Bilirubin, Total 1.3 mg/dL (0.2-1.0); Calcium 9.6 mg/dL (8.5-10.1); Total Protein 6.8 g/dL (6.4-8.2)
== END | disposition home or self-care (01) ==
LOC: LAB 11:18
PROVIDERS: ATTEND Physician Assistant
DX: I13.0 Hypertensive heart and chronic kidney disease with heart failure and stage 1 through stage 4 chronic kidney disease, or unspecified chronic kidney disease (principal); N18.2 Chronic kidney disease, stage 2 (mild); I50.32 Chronic diastolic (congestive) heart failure; E03.9 Hypothyroidism, unspecified; E55.9 Vitamin D deficiency, unspecified; E53.8 Deficiency of other specified B group vitamins
CPT/HCPCS: 36415; 80053; 80061; 82306; 82607; 84443; 85025

== ENCOUNTER → 2020-12-03 | Outpatient (CLI) | payer OTHER, MEDICARE ==
[~2020-12-03] MED LIST changes: -LISI-646 PO; +LISI20TA28 PO
== END | disposition home or self-care (01) ==
LOC: LAB 15:03
PROVIDERS: ATTEND Nurse Practitioner Family
DX: N39.0 Urinary tract infection, site not specified (principal)
CPT/HCPCS: 87086

== ENCOUNTER → 2021-01-13 | Outpatient (CLI) | payer OTHER, MEDICARE | END | disposition home or self-care (01) | LOC: LAB 16:06 | PROVIDERS: ATTEND Nurse Practitioner Family | DX: N39.0 Urinary tract infection, site not specified (principal) | CPT/HCPCS: 87086; 87088; 87186 ==

== ENCOUNTER → 2021-09-16 | Outpatient (CLI) | payer OTHER ==
[2021-09-16 11:16] LABS: Basophils # (auto) 0 10 ^3/uL (0-0.2); Basophils % (auto) 1.2 % (0.0-2.0); Eosinophils # (auto) 0.1 10 ^3/uL (0-0.8); Eosinophils % (auto) 3.6 % (0.0-7.0); Hematocrit 40.3 % (36.0-46.0); Hemoglobin 13.7 g/dL (12.2-16.2); Lymphocytes % (auto) 27.8 % (10.0-50.0); Mean Corpuscular Hemoglobin 33.1 pg (28.0-32.0); Mean Corpuscular Hgb Conc. 34.1 g/dL (32.0-36.0); Mean Corpuscular Volume 97.1 fL (80.0-100.0); Monocytes # (auto) 0.5 10 ^3/uL (0-1.3); Neutrophils # (auto) 1.8 10 ^3/uL (1.6-8.6); Neutrophils % (auto) 53.4 % (37.0-80.0); Nucleated Red Blood Cells % 0.1 %; Red Blood Cells 4.15 10^6/uL (4.0-5.20); Red Cell Distribution Width 13.7 % (11.8-14.3); White Blood Cell 3.5 10^3/uL (4.4-10.8)
[2021-09-16 12:07] LABS: Potassium 3.4 mmol/L (3.5-5.1)
[2021-09-16 12:18] LABS: Albumin 3.3 g/dL (3.4-5.0); BUN/Creatinine Ratio 23.2; Bilirubin, Total 1.2 mg/dL (0.2-1.0); Calcium 9.3 mg/dL (8.5-10.1); Total Protein 6.6 g/dL (6.4-8.2)
== END | disposition home or self-care (01) ==
LOC: LAB 10:52
PROVIDERS: ATTEND Nurse Practitioner Family
DX: Z00.00 Encounter for general adult medical examination without abnormal findings (principal); I10 Essential (primary) hypertension; E78.2 Mixed hyperlipidemia
CPT/HCPCS: 36415; 80053; 80061; 85025

== ENCOUNTER 2021-10-01 01:03 | Emergency (ER) | payer OTHER ==
[~2021-10-01] VITALS: Ht 162.6 cm; Wt 77.1 kg
[2021-10-01 01:30] VITALS: BP 168/71
[2021-10-01 01:45] LABS: Basophils # (auto) 0 10 ^3/uL (0-0.2); Basophils % (auto) 1.3 % (0.0-2.0); Eosinophils # (auto) 0.1 10 ^3/uL (0-0.8); Eosinophils % (auto) 4.1 % (0.0-7.0); Hemoglobin 13.3 g/dL (12.2-16.2); Lymphocytes % (auto) 27.1 % (10.0-50.0); Mean Corpuscular Volume 96.8 fL (80.0-100.0); Monocytes # (auto) 0.5 10 ^3/uL (0-1.3); Monocytes % (auto) 13.4 % (0.0-12.0); Neutrophils % (auto) 54.1 % (37.0-80.0); Nucleated Red Blood Cells % 0.2 %; Red Blood Cells 4.02 10^6/uL (4.0-5.20); Red Cell Distribution Width 13.8 % (11.8-14.3); White Blood Cell 3.6 10^3/uL (4.4-10.8)
[2021-10-01 01:59] LABS: INR 1.07 (0.9-1.15); Partial Thromboplastin Time 27.3 sec (23.6-33.0)
[2021-10-01 02:07] LABS: Albumin 3.2 g/dL (3.4-5.0); BUN/Creatinine Ratio 24.2; Calcium 8.9 mg/dL (8.5-10.1); Potassium 3.6 mmol/L (3.5-5.1)
[2021-10-01 02:10] LABS: Bilirubin, Total 0.7 mg/dL (0.2-1.0); Total Protein 6.2 g/dL (6.4-8.2)
== END 2021-10-01 03:20 | disposition home or self-care (01) ==
LOC: ER 01:03 → EDBD 01:03 → ER 03:20
DX: I83.892 Varicose veins of left lower extremity with other complications (principal); I10 Essential (primary) hypertension; Z90.89 Acquired absence of other organs; Z79.899 Other long term (current) drug therapy; Z88.0 Allergy status to penicillin
CPT/HCPCS: 36415; 80053; 84484; 85025; 85610; 85730; 93005

== ENCOUNTER 2021-12-17 11:34 | Emergency (ER) | payer OTHER ==
[~2021-12-17] VITALS: Ht 172.7 cm; Wt 77.1 kg
[2021-12-17 12:14] VITALS: BP 165/93
[2021-12-17 12:24] LABS: Basophils # (auto) 0 10 ^3/uL (0-0.2); Basophils % (auto) 0.9 % (0.0-2.0); Eosinophils # (auto) 0.1 10 ^3/uL (0-0.8); Eosinophils % (auto) 1.7 % (0.0-7.0); Hematocrit 40.8 % (36.0-46.0); Hemoglobin 13.7 g/dL (12.2-16.2); Lymphocytes # (auto) 0.8 10 ^3/uL (0.4-5.4); Lymphocytes % (auto) 20.4 % (10.0-50.0); Mean Corpuscular Hemoglobin 32.3 pg (28.0-32.0); Mean Corpuscular Hgb Conc. 33.6 g/dL (32.0-36.0); Mean Corpuscular Volume 96.1 fL (80.0-100.0); Monocytes # (auto) 0.5 10 ^3/uL (0-1.3); Monocytes % (auto) 13.5 % (0.0-12.0); Neutrophils # (auto) 2.4 10 ^3/uL (1.6-8.6); Neutrophils % (auto) 63.5 % (37.0-80.0); Nucleated Red Blood Cells % 0.1 %; Red Blood Cells 4.25 10^6/uL (4.0-5.20); Red Cell Distribution Width 13.2 % (11.8-14.3); White Blood Cell 3.9 10^3/uL (4.4-10.8)
[2021-12-17 12:40] LABS: Albumin 3.4 g/dL (3.4-5.0); Calcium 9.1 mg/dL (8.5-10.1); Magnesium 2.5 mg/dL (1.6-2.6); Potassium 3.3 mmol/L (3.5-5.1)
[2021-12-17 12:45] LABS: BUN/Creatinine Ratio 19.5; Bilirubin, Total 1.3 mg/dL (0.2-1.0); Total Protein 6.7 g/dL (6.4-8.2)
[2021-12-17] MEDS ORDERED: POTASSIUM EFFERVESENT TAB 25 MEQ PO ONE (13:45)
== END 2021-12-17 14:29 | disposition left against medical advice (07) ==
LOC: ER 11:34 → EDBD 11:34 → ER 14:29
DX: R06.02 Shortness of breath (principal); R11.0 Nausea; R53.1 Weakness; I10 Essential (primary) hypertension; Z53.29 Procedure and treatment not carried out because of patient's decision for other reasons
CPT/HCPCS: 36415; 71045; 80053; 83735; 83880; 84484; 85025; 93005

== ENCOUNTER 2022-02-21 06:38 | Inpatient (IN) | payer OTHER ==
[~2022-02-21] VITALS: Ht 172.7 cm; Wt 82.6 kg
[2022-02-21] MEDS ORDERED: BACIOIN15 OP (12:06)
[2022-02-21] MEDS ORDERED: ACET-1158 PO (12:06)
[2022-02-21] MEDS ORDERED: BACITRACIN TOP OINT 1 UD PKG TOP ONE (12:15)
[2022-02-21] MEDS ORDERED: HYDROcodone-ACET 5/325MG TAB PO ONE (13:00)
[2022-02-21] MEDS ORDERED: ONDANSETRON ODT 4 MG TAB PO ONE (13:00)
[2022-02-21] MEDS ORDERED: ACE3T PO (13:14)
[2022-02-21] MEDS ORDERED: MORPHINE SULFATE INJ 2 MG/ml SYRG IV PRN (14:00)
[2022-02-21] MEDS ORDERED: ACETAMINOPHEN 325 MG TAB PO PRN ×2 (14:00)
[2022-02-21] MEDS ORDERED: ONDANSETRON HCL 4 MG/2 ML VIAL IV PRN (14:00)
[2022-02-21 14:40] LABS: Albumin 3.3 g/dL (3.4-5.0); BUN/Creatinine Ratio 16.8; Calcium 9.4 mg/dL (8.5-10.1); Potassium 4.1 mmol/L (3.5-5.1)
[2022-02-21 14:43] LABS: Total Protein 6.5 g/dL (6.4-8.2)
[2022-02-21 14:50] LABS: Basophils # (auto) 0 10 ^3/uL (0-0.2); Basophils % (auto) 0.3 % (0.0-2.0); Eosinophils # (auto) 0 10 ^3/uL (0-0.8); Eosinophils % (auto) 0.6 % (0.0-7.0); Hematocrit 43.1 % (36.0-46.0); Lymphocytes # (auto) 0.8 10 ^3/uL (0.4-5.4); Lymphocytes % (auto) 10.9 % (10.0-50.0); Mean Corpuscular Hemoglobin 31.4 pg (28.0-32.0); Mean Corpuscular Hgb Conc. 32.6 g/dL (32.0-36.0); Mean Corpuscular Volume 96.4 fL (80.0-100.0); Monocytes # (auto) 0.6 10 ^3/uL (0-1.3); Monocytes % (auto) 8.6 % (0.0-12.0); Neutrophils % (auto) 79.6 % (37.0-80.0); Red Blood Cells 4.47 10^6/uL (4.0-5.20); White Blood Cell 7.5 10^3/uL (4.4-10.8)
[2022-02-21] MEDS ORDERED: FUROSEMIDE 100 MG/10ML VIAL IV ONE (16:30)
[2022-02-21] MEDS: HYDROcodone-ACET 5/325MG TAB PO PRN ×2 (17:19→23:04)
[2022-02-21] MEDS ORDERED: LEVO250T69 PO (20:10)
[2022-02-21] MEDS ORDERED: HYDR25TA5 PO (20:10)
[2022-02-21] MEDS ORDERED: LORA-205 (20:10)
[2022-02-21] MEDS ORDERED: ASPI-325 PO (20:10)
[2022-02-21] MEDS ORDERED: CITA-77 PO (20:10)
[2022-02-21] MEDS ORDERED: FUR20T PO (20:10)
[2022-02-21] MEDS ORDERED: SACU1TAB PO (20:10)
[2022-02-21] MEDS ORDERED: POTA-264 (20:10)
[2022-02-21] MEDS ORDERED: ATOR40TA52 PO (20:10)
[2022-02-21 22:00] VITALS: BP 112/52
[2022-02-22 05:00] VITALS: BP 113/62
[2022-02-22] MEDS: HYDROcodone-ACET 5/325MG TAB PO PRN ×2 (05:21→18:09)
[2022-02-22] MEDS: LEVOTHYROXINE SODIUM 100 MCG TAB PO SCH (06:37)
[2022-02-22 09:00] VITALS: BP 109/62
[2022-02-22] MEDS: METOPROLOL SUCCINATE XL 50 MG TAB PO SCH (10:00)
[2022-02-22 13:00] VITALS: BP 106/51
[2022-02-22 16:28] VITALS: BP 97/57
[2022-02-22] MEDS ORDERED: ASPirin 81 mg TAB PO ONE (16:30)
[2022-02-22] MEDS: LIDOCAINE 5% TOPICAL PATCH TOP SCH (18:09)
[2022-02-22] MEDS: ATORVASTATIN 20 MG TAB PO SCH (21:04)
[2022-02-22] MEDS: DOCUSATE SOD 100 MG CAP PO PRN (21:04)
[2022-02-22 22:00] VITALS: BP 102/54
[2022-02-23 05:00] VITALS: BP 129/77
[2022-02-23] MEDS: LEVOTHYROXINE SODIUM 100 MCG TAB PO SCH (07:19)
[2022-02-23 09:25] VITALS: BP 144/77
[2022-02-23] MEDS: ASPirin 81 mg TAB PO SCH (09:29)
[2022-02-23] MEDS: METOPROLOL SUCCINATE XL 50 MG TAB PO SCH (09:30)
[2022-02-23] MEDS: HYDROcodone-ACET 5/325MG TAB PO PRN (09:42)
[2022-02-23 13:00] VITALS: BP 121/61
[2022-02-23 17:00] VITALS: BP 150/88
[2022-02-23] MEDS: LIDOCAINE 5% TOPICAL PATCH TOP SCH (18:59)
[2022-02-23] MEDS: ATORVASTATIN 20 MG TAB PO SCH (21:02)
[2022-02-23 22:00] VITALS: BP 144/77
[2022-02-24] MEDS: HYDROcodone-ACET 5/325MG TAB PO PRN (01:15)
[2022-02-24] MEDS: DOCUSATE SOD 100 MG CAP PO PRN (01:15)
[2022-02-24 05:00] VITALS: BP 132/83
[2022-02-24] MEDS: LEVOTHYROXINE SODIUM 100 MCG TAB PO SCH (06:19)
[2022-02-24 09:00] VITALS: BP 136/73
[2022-02-24] MEDS: METOPROLOL SUCCINATE XL 50 MG TAB PO SCH (09:46)
[2022-02-24] MEDS ORDERED: CALC-440 PO (09:49)
[2022-02-24] MEDS ORDERED: HYDR-4902 PO (09:53)
[2022-02-24 13:00] VITALS: BP 132/66
[2022-02-24] MEDS: ASPirin 81 mg TAB PO SCH (13:20)
[2022-02-24 17:00] VITALS: BP 137/54
[2022-02-24] MEDS: LIDOCAINE 5% TOPICAL PATCH TOP SCH (18:51)
== END 2022-02-24 18:12 | DRG 185 ==
LOC: EDBD 06:38 → ER 06:41 → OVERFLOW 13:57 → WEST WING 18:32
PROVIDERS: ADMIT Internal Medicine; ATTEND Internal Medicine Nephrology
DX: S22.41XA Multiple fractures of ribs, right side, initial encounter for closed fracture (principal); I11.0 Hypertensive heart disease with heart failure; I50.9 Heart failure, unspecified; S41.111A Laceration without foreign body of right upper arm, initial encounter; W01.0XXA Fall on same level from slipping, tripping and stumbling without subsequent striking against object, initial encounter; E03.9 Hypothyroidism, unspecified; Z20.822 Contact with and (suspected) exposure to COVID-19; M81.0 Age-related osteoporosis without current pathological fracture; Z88.0 Allergy status to penicillin; Z86.73 Personal history of transient ischemic attack (TIA), and cerebral infarction without residual deficits; Y93.89 Activity, other specified; Y92.89 Other specified places as the place of occurrence of the external cause; Y99.8 Other external cause status
CPT/HCPCS: 36415; 71101; 71250; 73060; 80053; 83880; 84484; 85025; 97110; 97116; 97163; 97530; G0378; Q0162